=== PATIENT | male | born 1950 | race Caucasian/White ===

== ENCOUNTER 2017-01-08 07:53 | Outpatient (CLI) | payer OTHER | END 2017-01-08 07:54 | disposition home or self-care (01) | DX: I10 Essential (primary) hypertension (principal); Z13.220 Encounter for screening for lipoid disorders; Z79.899 Other long term (current) drug therapy; C61 Malignant neoplasm of prostate ==

== ENCOUNTER 2018-01-14 08:00 | Outpatient (CLI) | payer OTHER ==
[2018-01-14 19:37] LABS: ALBUMIN 4.5 g/dL (3.2-5.5); ALBUMIN/GLOBULIN RATIO 1.6 (1.0-2.2); CALCIUM 9.1 mg/dL (8.5-10.3); TOTAL PROTEIN 7.4 g/dL (6.7-8.2)
== END 2018-01-14 08:01 | disposition home or self-care (01) ==
LOC: LAB.WCP 08:00
PROVIDERS: ATTEND Family Medicine
DX: I10 Essential (primary) hypertension (principal); C61 Malignant neoplasm of prostate
CPT/HCPCS: 36415; 80053; 84153

== ENCOUNTER 2018-10-20 13:40 | Outpatient (CLI) | payer OTHER ==
[2018-10-20 18:57] LABS: ALBUMIN 4.4 g/dL (3.2-5.5); ALBUMIN/GLOBULIN RATIO 1.3 (1.0-2.2); BILIRUBIN,TOTAL 0.6 mg/dL (0.2-1.0); CREATININE 0.9 mg/dL (0.6-1.2); TOTAL PROTEIN 7.8 g/dL (6.7-8.2); URIC ACID 6.1 mg/dL (2.6-7.2)
== END 2018-10-20 23:59 | disposition home or self-care (01) ==
LOC: LAB.WCP 13:40
PROVIDERS: ATTEND Family Medicine
DX: M13.861 Other specified arthritis, right knee (principal)
CPT/HCPCS: 36415; 80053; 84550